=== PATIENT | female | born 1955 | race Caucasian/White ===

== ENCOUNTER 2017-10-26 02:16 | Inpatient (IN) | payer BC, OTHER ==
[~2017-10-26] VITALS: Ht 172.7 cm; Wt 88.0 kg
[2017-10-26] VITALS (7 sets, daily range): BP systolic 144–170
[~2017-10-26 02:16] MED LIST: METO-442 PO
--- NOTE | 2017-10-26 02:20 | NUR ---
Placed in room 01 . Placed on photographer model, blood pressure machine and pulse oximeter. To gown for exam. Side rails up. Report given to TREMAYNE Al.
--- NOTE | 2017-10-26 02:25 | NUR ---
Patient AAO x 4 sitting in bed, c/o heart burn, palpitations and nausea. States she has chest "pressure" no pain. Patient able to speak in full sentences. Face flushed, minor diaphoresis noted. Patient is hypertensive and tachycardic at HR: 190. Patient denies cardiac history, states she had anxiety. Will continue to monitor closely.
--- NOTE | 2017-10-26 02:30 | NUR ---
ER at bedside examining patient.
[2017-10-26] MEDS ORDERED: NACL 0.9% 1,000 ML IV ONE (02:31)
--- NOTE | 2017-10-26 02:38 | NUR ---
# 20 gauge angiocath placed to L AC. Use of asceptic technique. Opsite placed over site. Blood return noted. Blood for lab drawn from site. Flushed with 10 cc of normal saline. No evidence of infiltration noted. Patient tolerated well.
[2017-10-26] MEDS ORDERED: ASPIRIN 81 MG TAB.CHEW PO ONE (02:45)
[2017-10-26] MEDS ORDERED: DILTIAZEM HCL 25 MG/5 ML VIAL IVP ONE ×2 (02:45→03:30)
--- NOTE | 2017-10-26 02:45 | NUR ---
Cardizem 20mg given. HR: 191
--- NOTE | 2017-10-26 02:50 | NUR ---
HR: 155. aware.
[2017-10-26 02:51] LABS: BASOPHILS # (AUTO) 0.1 K/uL (0.0-0.2); BASOPHILS % (AUTO) 0.8 % (0.0-2.0); EOSINOPHILS # (AUTO) 0.2 K/uL (0.0-0.4); EOSINOPHILS % (AUTO) 2.4 % (0.0-4.0); HEMATOCRIT 49.4 % (36-48); HEMOGLOBIN 16.9 g/dL (12.0-16.0); LYMPHOCYTES % (AUTO) 56.5 % (20.5-51.5); MEAN CORPUSCULAR HEMOGLOBIN 29 pg (27-31); MEAN CORPUSCULAR HGB CONC 34 % (32-36); MEAN CORPUSCULAR VOLUME 84 fL (79.0-98.0); MONOCYTES # (AUTO) 0.6 K/uL (0.0-1.0); NEUTROPHILS # (AUTO) 2.3 K/uL (1.8-7.7); NEUTROPHILS % (AUTO) 32.3 % (40.0-70.0); PLATELET COUNT (AUTO) 241 K/uL (130-430); RED CELL DISTRIBUTION WIDTH 11.7 % (9.0-15.0); WHITE BLOOD COUNT (AUTO) 7.2 K/uL (4.8-10.8)
[2017-10-26] MEDS ORDERED: DILTIAZEM HCL 25 MG/5 ML VIAL ONE (02:54)
--- NOTE | 2017-10-26 02:56 | NUR ---
Cardizem 10mg given IVP.
--- NOTE | 2017-10-26 03:00 | NUR ---
Patient placed on ZOLL monitor.
--- NOTE | 2017-10-26 03:01 | NUR ---
HR 144. aware.
[2017-10-26 03:02] LABS: INR 0.9 (0.8-1.2); PROTHROMBIN TIME 9.3 SECS (9.5-12.5)
[2017-10-26] MEDS ORDERED: DIGOXIN 0.5 MG/2 ML AMP IVP ONE (03:15)
[2017-10-26] MEDS ORDERED: KETAMINE HCL 500 MG/10 ML VIAL IVP ONE (03:15)
[2017-10-26] MEDS ORDERED: MIDAZOLAM HCL 5 MG/5 ML VIAL IVP ONE (03:30)
--- NOTE | 2017-10-26 03:30 | NUR ---
MD Dr. Fletcher, RT, Mikaela RN, Maribeth RN, and Danyelle RN at bedside. Preparing for possible cardioversion with ZOLL.
--- NOTE | 2017-10-26 03:35 | NUR ---
Versed given IVP. Dr. Amos and RT at bedside.
--- NOTE | 2017-10-26 03:39 | NUR ---
Ketamine IVP given by Dr. Fletcher.
--- NOTE | 2017-10-26 03:40 | NUR ---
Patient HR 99. Dr. Amos at bedside and aware. Chemical cardioversion accomplished. Per MD repeat EKG and no cardioversion needed with ZOLL at this time.
--- NOTE | 2017-10-26 04:06 | NUR ---
Patient AAO X4, Back to baseline.
--- NOTE | 2017-10-26 04:35 | NUR ---
ADMISSION: The patient, OZZIE PIZARRO, 61 y/o, F admitted by , was given written information regarding hospital policies, unit procedures and contact persons. Valuables were checked and pt informed her nurses will be Otton[facility].
--- NOTE | 2017-10-26 04:38 | NUR ---
Patient will be admitted to care of Dr. Marley. Admitted to Tele unit. Will go to room 134. Belongings list completed. Summary report printed. Report will be given at bedside.
--- NOTE | 2017-10-26 05:19 | NUR ---
Consult Called Reason for Consultation: Afib Was consult called: Y Person who was notified: [employer] Tractor Operator 22 Consulting Physician: Dr. Patel Restaurant Recruiter Phone Number: [phone] Ordering Physician: Dr. Marley
--- NOTE | 2017-10-26 07:47 | NUR ---
CLOSING NOTE ENDORSED CARE AND BEDSIDE REPORT TO DAY SHIFT NURSE. PATIENT IS AWAKE IN BED AND DENIES DISCOMFORT OR PAIN AT THIS TIME. ALL NEEDS MET THROUGHOUT THE NIGHT. PATIENT IS STABLE. FALL AND SAFETY PRECAUTIONS MAINTAINED. NO SIGNIFICANT CHANGES THROUGHOUT SHIFT.
--- NOTE | 2017-10-26 08:00 | NUR ---
AM NOTES Pt in bed awake, alert and oriented. denies any pain, just feels anxious. blood pressure elevated. will give meds. NS infusing from emergency at this time. sinus rythm on the monitor. safety precaution observed. Enc to call for help as needed. pt verbalize understanding..
[2017-10-26] MEDS: DILTIAZEM HCL 60 MG TABLET PO SCH ×2 (08:57→15:16)
--- NOTE | 2017-10-26 09:45 | NUR ---
am notes watching tv at this time. sinus rythm on the monitor.
--- NOTE | 2017-10-26 11:57 | NUR ---
NOTES- ASSISTED TO THE BATHROOM. FEELS SLIGHTLY DIZZY. DENIES ANY CHEST PAIN OR DISCOMFORT AT THIS TIME. ENC. TO CALL FOR HELP AT ALL TIMES. PT VERBALIZE UNDERSTANDING.
--- NOTE | 2017-10-26 12:38 | NUR ---
PAGED- SPOKE TO DR. FIERRO AND MADE AWARE OF PATIENT'S HIGH BLOOD PRESSURE. NEW ORDERS RECEIVED.
[2017-10-26] MEDS ORDERED: hydrALAZINE HCL 20 MG/ML VIAL IVP PRN (12:45)
--- NOTE | 2017-10-26 13:56 | NUR ---
MD ROUNDS SEEN BY DR. FIERRO AT BEDSIDE.
[2017-10-26] MEDS ORDERED: METOPROLOL TARTRATE 50 MG TABLET PO ONE (14:00)
[2017-10-26 14:08] LABS: BASOPHILS % (AUTO) 0.5 % (0.0-2.0); EOSINOPHILS % (AUTO) 0.5 % (0.0-4.0); HEMATOCRIT 47.9 % (36-48); LYMPHOCYTES # (AUTO) 2.4 K/uL (1.0-5.5); LYMPHOCYTES % (AUTO) 30.2 % (20.5-51.5); MEAN CORPUSCULAR HEMOGLOBIN 28 pg (27-31); MEAN CORPUSCULAR HGB CONC 33 % (32-36); MEAN CORPUSCULAR VOLUME 83 fL (79.0-98.0); MONOCYTES # (AUTO) 0.2 K/uL (0.0-1.0); NEUTROPHILS # (AUTO) 5.4 K/uL (1.8-7.7); NEUTROPHILS % (AUTO) 65.8 % (40.0-70.0); PLATELET COUNT (AUTO) 282 K/uL (130-430); RED BLOOD CELL COUNT(AUTO) 5.74 MIL/uL (4.2-6.2); RED CELL DISTRIBUTION WIDTH 11.7 % (9.0-15.0)
[2017-10-26 14:18] LABS: CALCIUM 10.5 mg/dL (8.4-11.0); CREATININE 0.97 mg/dL (0.55-1.30)
[2017-10-26 14:35] LABS: FREE T4 (FREE THYROXINE) 1.1 ng/dL (0.6-1.6); THYROID STIMULATING HORMONE 0.55 uIu/mL (0.34-4.82); TOTAL BILIRUBIN 0.6 mg/dL (0.0-1.0)
--- NOTE | 2017-10-26 15:20 | NUR ---
notes- resting in bed, denies any pain or discomfort. stable
[2017-10-26 18:04] LABS: TOTAL IRON BIND. CAPACITY 359 ug/dL (250-450)
--- NOTE | 2017-10-26 18:24 | NUR ---
notes- in bed, watching tv. still waiting for cardio consult at this time. denies any pain or discomfort. blood pressure is controlled at this time. sinus rythm on the monitor. all needs meet. needs attended. will endorse
--- NOTE | 2017-10-26 20:52 | NUR ---
Patient awake alert verbally responsive HOB elevated on room air this hour 02 SAT 95 % chest movement symmetrical BP 144/92 HR 73 BPM procedures explained / .
[2017-10-26] MEDS: METOPROLOL TARTRATE 50 MG TABLET PO SCH (21:08)
--- NOTE | 2017-10-26 22:02 | NUR ---
LOPRESSOR 50 MG PO administer as ordered for HYPERTENSION BP 144/92 patient awake and alert .
--- NOTE | 2017-10-27 00:03 | NUR ---
DR BUI is here to see patient this hour , patient is resting / .
--- NOTE | 2017-10-27 01:56 | NUR ---
Hourly Rounding patient resting HOB elevated Telemetry NSR respirations regular also unlabored no use of accessory muscles call roy with patient .
[2017-10-27 01:58] VITALS: BP_SYST 131
[2017-10-27 03:09] VITALS: BP_SYST 131
--- NOTE | 2017-10-27 04:01 | NUR ---
Telemetry sinus sofiya / sinus rhythm 58 - 64 bpm patient resting no complaints made .
[2017-10-27 06:34] LABS: BASOPHILS % (AUTO) 0.6 % (0.0-2.0); EOSINOPHILS # (AUTO) 0.2 K/uL (0.0-0.4); EOSINOPHILS % (AUTO) 2.4 % (0.0-4.0); HEMATOCRIT 45.2 % (36-48); HEMOGLOBIN 15.3 g/dL (12.0-16.0); LYMPHOCYTES # (AUTO) 3.1 K/uL (1.0-5.5); LYMPHOCYTES % (AUTO) 45.9 % (20.5-51.5); MEAN CORPUSCULAR HEMOGLOBIN 29 pg (27-31); MEAN CORPUSCULAR HGB CONC 34 % (32-36); MEAN CORPUSCULAR VOLUME 84 fL (79.0-98.0); MONOCYTES # (AUTO) 0.5 K/uL (0.0-1.0); NEUTROPHILS % (AUTO) 44.1 % (40.0-70.0); PLATELET COUNT (AUTO) 252 K/uL (130-430); RED BLOOD CELL COUNT(AUTO) 5.36 MIL/uL (4.2-6.2); RED CELL DISTRIBUTION WIDTH 11.8 % (9.0-15.0); WHITE BLOOD COUNT (AUTO) 6.8 K/uL (4.8-10.8)
[2017-10-27 06:49] LABS: CALCIUM 10.1 mg/dL (8.4-11.0); CREATININE 0.82 mg/dL (0.55-1.30); POTASSIUM 4.5 mmol/L (3.5-5.1)
[2017-10-27 08:00] VITALS: BP_SYST 134
--- NOTE | 2017-10-27 08:00 | NUR ---
AM NOTES IN BED, AWAKE. DENIES ANY PAIN OR DISCOMFORT. DENIES ANY SHORTNESS OF BREATH, SINUS RYTHM ON THE MONITOR. BLOOD PRESSURE CONTROLLED AT THIS TIME. SAFETY PRECAUTION OBSERVED. WILL MONITOR.
[2017-10-27] MEDS ORDERED: METOPROLOL TARTRATE 50 MG TABLET PO SCH (09:00)
[2017-10-27] MEDS: METOPROLOL TARTRATE 50 MG TABLET PO SCH (09:22)
[2017-10-27 11:45] VITALS: BP_SYST 128
--- NOTE | 2017-10-27 12:12 | NUR ---
notes- eating lunch, denies any chest pain or discomfort. no complaints. v/s stable
--- NOTE | 2017-10-27 14:05 | NUR ---
Notes. Dr. Marley at bedside. patient wants to go home today.
--- NOTE | 2017-10-27 14:30 | NUR ---
notes- No fixer supervisor available today RE; diabetic teaching. informed dr. pedraza. stated its ok patient to go home.
[2017-10-27] MEDS ORDERED: ASPI81TA2 PO (14:34)
[2017-10-27] MEDS ORDERED: METF-303 PO (14:35)
[2017-10-27] MEDS ORDERED: METO-442 PO (14:36)
--- NOTE | 2017-10-27 14:55 | NUR ---
Dr. pedraza order to give the metformin now.
[2017-10-27 14:56] VITALS: BP_SYST 128
--- NOTE | 2017-10-27 15:55 | NUR ---
DISCHARGE D/c patient home accompanied by . ambulate with steady gait. denies any pain or discomfort. no acute distress noted. discharge instruction and prescription given and discussed to patient. pt verbalize understanding. arm band and ivl removed. discharge.
[2017-10-27 16:10] VITALS: BP_SYST 155
[2017-10-27] MEDS ORDERED: metFORMIN HCL 500 MG TABLET PO ONE (18:00)
[2017-10-27] MEDS ORDERED: metFORMIN HCL 500 MG TABLET PO SCH (18:00)
== END 2017-10-27 15:50 | disposition home or self-care (01) | DRG 310 ==
LOC: SED 02:16 → STU 04:18
PROVIDERS: ADMIT Internal Medicine; ATTEND Internal Medicine
DX: I48.91 Unspecified atrial fibrillation (principal); E11.65 Type 2 diabetes mellitus with hyperglycemia; I10 Essential (primary) hypertension; E66.9 Obesity, unspecified; Z79.899 Other long term (current) drug therapy; Z72.89 Other problems related to lifestyle; Z68.29 Body mass index [BMI] 29.0-29.9, adult
CPT/HCPCS: 36415; 71045; 80048; 80053; 82550-TC; 82962; 83036; 83540-TC; 83550-TC; 83735-TC; 84439; 84443-TC; 84484; 85025; 85379; 85610-TC; 85730-TC; 93005; 93306; 96361; 96374; 96375; 96376; 99285; J0360; J1160; J2250; J3490; J7030